=== PATIENT | male | born 1935 | race Caucasian/White ===

== ENCOUNTER 2017-09-22 13:05 | Emergency (ER) | payer OTHER ==
[~2017-09-22 13:05] MED LIST: ASPI81; LORT5TAB PO
[2017-09-22 13:30] VITALS: BP 148/70; PULSE 65; RESP 20; TEMP 97.4; O2SAT 87; O2SAT 90
[2017-09-22 13:31] VITALS: O2SAT 93
--- NOTE | 2017-09-22 13:51 | PD ---
HPI Chief Complaint: Fall Time Seen by Provider: 13:38 Travel History International Travel<30 days: No Contact w/Intl Traveler<30days: No Traveled to known affect area: No History of Present Illness HPI 81 YO M presents to the ED via EMS for evaluation of 8/10 right groin pain. Onset after attempting to roll out of bed. Pain is constant, worsened by attempted ROM. The patient has not been ambulatory since the incident. He denies CP, palpitations, SOB, abdominal pain, decreased appetite, N/V. He has an indwelling Munoz catheter. He speaks in a soft, raspy voice. He states this is his normal. He is unable to provide any other meaningful history. PFSH Past Medical History Arthritis: No Autoimmune Disease: No Blood Disorders: No Heart Rhythm Problems: No Cancer: No Cardiovascular Problems: Yes High Cholesterol: Yes (HX HIGH CHOLESTEROL; RESOLVED) Chemotherapy: No Chest Pain: No Congestive Heart Failure: No Diminished Hearing: No Endocrine: No Gastrointestinal Disorders: Yes Glaucoma: No Genitourinary: No Hepatitis: No Hiatal Hernia: No Hypertension: Yes Immune Disorder: No Kidney Stones: No Musculoskeletal: Yes Neurologic: No Psychiatric: No Reproductive: No Respiratory: No Myocardial Infarction: No Radiation Therapy: No Renal Failure: No Ulcer: Yes (HX BLEEDING ULCER REPAIRED SURGICALLY) Past Surgical History Abdominal Aneurysm Repair: Yes (2 OPERATIONS) Abdominal Surgery: Yes (BILATERAL HERNIA REPAIRS 1984; ANEURYSM REPAIR 8 YEARS AGO) AICD: No Appendectomy: No Arteriovenous Shunt: No Cardiac Surgery: Yes (AAA REPAIR) Cholecystectomy: Yes Ear Surgery: No Endocrine Surgery: No Eye Surgery: No Genitourinary Surgery: No Gynecologic Surgery: No Insulin Pump: No Joint Replacement: No Oral Surgery: No Pacemaker: No Thoracic Surgery: No Other Surgery: Yes (BILATERAL HERNIA REPAIRS 1984) Social History Alcohol Use: No Tobacco Use: Yes (1/2 PPD) Substance Use: No Allergies-Medications (Allergen,Severity, Reaction): Coded Allergies: No Known Allergies (Verified Adverse Reaction, Unknown, 09/22/17) Reported Meds & Prescriptions Reported Meds & Active Scripts Active Keflex (Cephalexin) 500 Mg Cap 500 Mg PO Q12H 7 Days Reported Xanax (Alprazolam) 0.5 Mg Tab 0.25-0.5 Mg PO Q8HR PRN Remeron (Mirtazapine) 15 Mg Tab 15 Mg PO HS Terazosin (Terazosin HCl) 2 Mg Cap 2 Mg PO HS Percocet (Oxycodone-Acetaminophen) 7.5-325 mg Tab 1 Tab PO Q6H PRN Levsin-SL (Hyoscyamine Sulfate) 0.125 Mg Subl 0.125 Mg SL Q4H PRN Protonix (Pantoprazole Sodium) 40 Mg Tab 40 Mg PO DAILY Bethanechol 10 Mg Tab 10 Mg PO Q8HR Tamsulosin (Tamsulosin HCl) 0.4 Mg Cap 0.8 Mg PO HS Buspirone (Buspirone HCl) 10 Mg Tab 10 Mg PO BID AM & HS Coreg (Carvedilol) 6.25 Mg Tab 6.25 Mg PO BID Lasix (Furosemide) 40 Mg Tab 80 Mg PO SUTUTHSA Take 2 tablets (80mg) daily on Monday,Monday, and Monday Senna S (Sennosides-Docusate Sodium) 8.6-50 Mg Tab 2 Tab PO BID Gabapentin 100 Mg Cap 200 Mg PO TID Norvasc (Amlodipine Besylate) 10 Mg Tab 10 Mg PO DAILY Aspirin Adult Low Strength (Aspirin) 81 Mg Tabdr 81 Mg PO DAILY Pepcid (Famotidine) 20 Mg Tab 20 Mg PO DAILY Celexa (Citalopram Hydrobromide) 10 Mg Tab 10 Mg PO HS Restoril (Temazepam) 15 Mg Cap 15 Mg PO HS PRN Morphine Liq (Morphine Sulfate) 20 Mg/Ml Liq 5 Mg PO Q3HR Proair Hfa (Albuterol Sulfate) 90 Mcg Hfa.aer.ad 2 Puff INH Q6HR PRN Review of Systems ROS Limitations: Poor Historian Except as stated in HPI: all other systems reviewed are Neg Physical Exam Exam Limitations: Poor Historian Narrative GENERAL: Chronically ill-appearing white male in no acute distress. SKIN: Focused skin assessment warm/dry. HEAD: Normocephalic. Atraumatic. EYES: No scleral icterus. No injection or drainage. NECK: Supple, trachea midline. No JVD or lymphadenopathy. CARDIOVASCULAR: Regular rate and rhythm without murmurs, gallops, or rubs. RESPIRATORY: Breath sounds clear and equal bilaterally. No accessory muscle use. GASTROINTESTINAL: Abdomen soft, non-tender, nondistended. Active bowel sounds. : Indwelling Munoz catheter with cloudy yellow urine in the collection bag. MUSCULOSKELETAL: No cyanosis, or edema. FOCUSED RIGHT LOWER EXTREMITY EXAM: 2+ DP pulse. Pain elicited with internal and external rotation or attempted flexion of the hip or knee. No foreshortening or internal rotation noted. BACK: Nontender without obvious deformity. No CVA tenderness. Data Data Last Documented VS Vital Signs Date Time Temp Pulse Resp B/P (MAP) Pulse Ox O2 Delivery O2 Flow Rate FiO2 09/22/17 19:21 09/22/17 18:13 68 18 96 Nasal Cannula 4.00 09/22/17 13:30 97.4 Orders Orders Hip, Uni(Ap&Lat) W Ap Pelvis (09/22/17 13:37) Hip, Uni(Ap&Lat) Wo Ap Pelvis (09/22/17 13:58) Electrocardiogram (09/22/17 14:35) Complete Blood Count With Diff (09/22/17 14:35) Comprehensive Metabolic Panel (09/22/17 14:35) Prothrombin Time / Inr (Pt) (09/22/17 14:35) Act Partial Throm Time (Ptt) (09/22/17 14:35) Urinalysis - C+S If Indicated (09/22/17 14:35) Type And Screen (09/22/17 14:35) Chest, Single Ap (09/22/17 14:35) Iv Access Insert/Monitor (09/22/17 14:35) Oximetry (09/22/17 14:35) Ecg Monitoring (09/22/17 14:35) Sodium Chloride 0.9% Flush (Ns Flush) (09/22/17 14:45) Diet Npo (09/22/17 Dinner) Ct Hip W/O Contrast (09/22/17 ) Urine Culture (09/22/17 14:45) Morphine Inj (Morphine Inj) (09/22/17 16:30) Ct Hip W/O Contrast (09/22/17 ) Ed Discharge Order (09/22/17 18:24) Labs Laboratory Tests Test 09/22/17 14:45 White Blood Count 10.1 TH/MM3 Red Blood Count 4.45 MIL/MM3 Hemoglobin 12.5 GM/DL Hematocrit 37.8 % Mean Corpuscular Volume 85.0 FL Mean Corpuscular Hemoglobin 28.0 PG Mean Corpuscular Hemoglobin Concent 33.0 % Red Cell Distribution Width 19.2 % Platelet Count 161 TH/MM3 Mean Platelet Volume 9.2 FL Neutrophils (%) (Auto) 64.9 % Lymphocytes (%) (Auto) 18.9 % Monocytes (%) (Auto) 11.9 % Eosinophils (%) (Auto) 3.4 % Basophils (%) (Auto) 0.9 % Neutrophils # (Auto) 6.5 TH/MM3 Lymphocytes # (Auto) 1.9 TH/MM3 Monocytes # (Auto) 1.2 TH/MM3 Eosinophils # (Auto) 0.3 TH/MM3 Basophils # (Auto) 0.1 TH/MM3 CBC Comment DIFF FINAL Differential Comment Prothrombin Time 10.2 SEC Prothromb Time International Ratio 1.0 RATIO Activated Partial Thromboplast Time 26.8 SEC Urine Color YELLOW Urine Turbidity HAZY Urine pH 6.0 Urine Specific [place] 1.015 Urine Protein 100 mg/dL Urine Glucose (UA) NEG mg/dL Urine Ketones NEG mg/dL Urine Occult Blood SMALL Urine Nitrite NEG Urine Bilirubin NEG Urine Urobilinogen LESS THAN 2.0 MG/DL Urine Leukocyte Esterase LARGE Urine RBC 12 /hpf Urine WBC /hpf Urine WBC Clumps MANY Urine Amorphous Sediment RARE Urine Bacteria MANY /hpf Urine Hyaline Casts 3 /lpf Urine Granular Casts 7 /lpf Microscopic Urinalysis Comment CATH-CULTURE IND Blood Urea Nitrogen 47 MG/DL Creatinine 3.97 MG/DL Random Glucose 101 MG/DL Total Protein 7.5 GM/DL Albumin 2.9 GM/DL Calcium Level 9.2 MG/DL Alkaline Phosphatase 86 U/L Aspartate Amino Transf (AST/SGOT) 17 U/L Alanine Aminotransferase (ALT/SGPT) 8 U/L Total Bilirubin 0.5 MG/DL Sodium Level 139 MEQ/L Potassium Level 4.6 MEQ/L Chloride Level 105 MEQ/L Carbon Dioxide Level 25.6 MEQ/L Anion Gap 8 MEQ/L Estimat Glomerular Filtration Rate 15 ML/MIN [facility] Medical Decision Making Medical Screen Exam Complete: Yes Emergency Medical Condition: Yes Differential Diagnosis Hip fracture versus pelvic fracture versus dislocation versus fall versus other Narrative Course 81-year-old male presents to the ED via EMS for evaluation of 10/10 right hip pain. Patient states the pain onset after he was attempting to get out of bed. 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 Patient is hypertensive on presentation. Physical exam reveals a chronically ill-appearing white male in no acute distress. 2+ DP pulse in the right leg. Attempted internal and external rotation elicits pain. Attempted flexion of his pain. Exam otherwise unremarkable. Patient's daughter arrives at bedside and states that patient is on [facility]. She reports history of renal failure, patient stopped going to dialysis in June. He is cared for at home by his daughters.The patient was ambulatory until yesterday when he had a fall on his daughters back porch. She states that the patient did not hit his head or lose consciousness. CBC & BMP Diagram 09/22/17 14:45 Total Protein 7.5, Albumin 2.9 L, Calcium Level 9.2, Alkaline Phosphatase 86, Aspartate Amino Transf (AST/SGOT) 17, Alanine Aminotransferase (ALT/SGPT) 8 L, Total Bilirubin 0.5 UA: Hazy, large leukocyte Estrace, innumerable WBCs, many wbc clumps, many bacteria. Culture indicated. Coags: INR 1.0. CXR: Mild cardiomegaly with minimal positive fluids bounds. Subtle left atypical effusion/peripheral thickening. No pneumothorax or acute displaced rib fractures. EKG rate 65, sinus rhythm. MO interval 1:30, QRS 108, QTC 445. LVH. ST elevations in V4-V6. Right hip and pelvis x-ray: Question of early avascular necrosis Left hip x-ray: Recommend CT exam Right extremity CT: Right inferior pubic ramus and acetabular fractures noted. Left lower extremities CT: No evidence for hip fracture I discussed the results of the workup with the patient's daughter. She would like to have with recommendations before leaving today. I spoke with Dr. Almanzar who does not recommend surgical intervention at this time. Case management was contacted to arrange a hospital bed and changes in his nursing schedule. The patient is discharged hospice care. Diagnosis Primary Impression: Pelvic fracture Qualified Codes: S32.501A - Unspecified fracture of right pubis, initial encounter for closed fracture Additional Impressions: Acetabular fracture Qualified Codes: S32.401A - Unspecified fracture of right acetabulum, initial encounter for closed fracture Urinary tract infection Qualified Codes: T83.511A - Infection and inflammatory reaction due to indwelling urethral catheter, initial encounter; N39.0 - Urinary tract infection , site not specified Referrals: Orestes Almanzar Jr., MD Patient Instructions: Catheter-associated Urinary Tract Infection (ED), General Instructions, Pelvic Fracture (ED) Additional Instructions: Rest, hydrate. Begin antibiotics today and administer every dose until they're gone. Patient should be nonweightbearing until cleared by orthopedist. Follow-up with Dr. Brandt as discussed. Return to the ED for worsening symptoms or any urgent or emergent medical condition. Med/Other Pt SpecificInfo: Prescription(s) given Scripts Cephalexin (Keflex) 500 Mg Cap 500 MG PO Q12H for Infection for 7 Days, #14 CAP 0 Refills Prov: Marli Shea MD 09/22/17 Disposition: 51 HOSPICE/MED FACILITY Condition: Stable Radha Davis Sep 22, 2017 13:51
--- NOTE | 2017-09-22 14:15 | RADRPT ---
EXAM DATE/TIME: 09/22/2017 13:54 [facility] COMPARISON: No previous studies available for comparison. INDICATIONS : Right hip pain, no known injury. MEDICAL HISTORY : Unobtainable. SURGICAL HISTORY : Unobtainable. ENCOUNTER: Initial ACUITY: 1 day PAIN SCORE: Non-responsive. LOCATION: Right hip FINDINGS: There is sclerosis to the right femoral head when compared to the left. This can be seen with early avascular necrosis. SI joint is normal. Lungs anatomic. Fractures are appreciated. CONCLUSION: Question of early avascular necrosis Gabriel Craig MD FACR on September 22, 2017 at 14:14 Board Certified Radiologist. This report was verified electronically.
--- NOTE | 2017-09-22 14:25 | RADRPT ---
EXAM DATE/TIME: 09/22/2017 13:54 [facility] COMPARISON: No previous studies available for comparison. INDICATIONS : Left hip pain, no known injury. MEDICAL HISTORY : Unobtainable. SURGICAL HISTORY : Unobtainable. ENCOUNTER: Initial ACUITY: 1 day PAIN SCORE: Non-responsive. LOCATION: Left hip FINDINGS: The configuration of the left hip is abnormal on all the views provided believe there is likely a sub capital fracture with some impaction. CT examination of the pelvis and left hip would be suggested. T he adjacent pelvis appears grossly intact. Contralateral right hip is notable for moderate degenerati ve change. CONCLUSION: Recommend CT examination of the pelvis and left hip Marek Esquivel MD on September 22, 2017 at 14:22 Board Certified Radiologist. This report was verified electronically.
[2017-09-22] MEDS ORDERED: SODIUM CHLORIDE 0.9% FLUSH 10 ML FLUSH IVF PRN (14:45)
[2017-09-22 15:10] LABS: AUTOMATED NEUTROPHIL # 6.5 TH/MM3 (1.8-7.7); BASOPHIL # 0.1 TH/MM3 (0-0.2); BASOPHIL % 0.9 % (0.0-2.0); EOSINOPHIL # 0.3 TH/MM3 (0-0.4); EOSINOPHIL % 3.4 % (0.0-4.0); HEMATOCRIT 37.8 % (39.0-51.0); HEMOGLOBIN 12.5 GM/DL (13.0-17.0); LYMPH % 18.9 % (9.0-44.0); LYMPHOCYTE # 1.9 TH/MM3 (1.0-4.8); MEAN PLATELET VOLUME 9.2 FL (7.0-11.0); MONO % 11.9 % (0.0-8.0); MONOCYTE # 1.2 TH/MM3 (0-0.9); NEUT % 64.9 % (16.0-70.0); PLATELET COUNT 161 TH/MM3 (150-450); RED BLOOD COUNT 4.45 MIL/MM3 (4.50-5.90); RED CELL DISTRIBUTION WIDTH 19.2 % (11.6-17.2); WHITE BLOOD COUNT 10.1 TH/MM3 (4.0-11.0)
--- NOTE | 2017-09-22 15:13 | RADRPT ---
EXAM DATE/TIME: 09/22/2017 14:56 [facility] COMPARISON: HIP LEFT (AP&LAT 2/3VWS) WO AP PELVIS, September 22, 2017, 13:54. HIP RIGHT (AP&LAT 2/3VWS) W AP PELVIS, September 22, 2017, 13:54. INDICATIONS : Patient rolled out of bed yesterday, hip pain. Right. RADIATION DOSE: 7.89 CTDIvol (mGy) MEDICAL HISTORY : Cardiovascular disease. Hypertension. SURGICAL HISTORY : Abdominal aortic aneurysm repair. Cholecystectomy. Bilateral hernia repairs. ENCOUNTER: Initial ACUITY: 2 days PAIN SCALE: 10/10 LOCATION: Right pelvis TECHNIQUE: Volumetric scanning of the hip was performed. Using automated exposure control and adjustment of the mA and/or kV according to patient size, radiation dose was kept as low as reasonably achievable to o btain optimal diagnostic quality images. DICOM format image data is available electronically for rev iew and comparison. FINDINGS: The bone density is diminished. There is a nondisplaced fracture through the right inferior pubic cami us identified, as well as a slightly displaced fracture of the acetabulum noted. This involves the ro of and medial acetabulum. This is best appreciated on axial image 33 of series 3. The femoral head is intact. There is moderate narrowing of the right hip and mild sclerosis of the femoral head without evidence of fracture. CONCLUSION: Right inferior pubic ramus and acetabular fractures are noted. Mateo Mendoza MD on September 22, 2017 at 15:09 Board Certified Radiologist. This report was verified electronically.
[2017-09-22 15:23] LABS: AMORPHOUS SEDIMENT, URINE RARE; BACTERIA, URINE MANY /hpf; BILIRUBIN, URINE NEG (NEG); BLOOD, URINE SMALL (NEG); GLUCOSE,URINE NEG (NEG); HYALINE CAST, URINE 3 /lpf (RARE); KETONE, URINE NEG (NEG); NITRITE,URINE NEG (NEG); URINE COLOR YELLOW (YELLW/STRAW); URINE LEUKOCYTE ESTERASE LARGE (NEG); WHITE BLOOD CELL CLUMPS MANY
[2017-09-22 15:26] LABS: ALBUMIN 2.9 GM/DL (3.4-5.0); ALT (GPT) 8 U/L (12-78); AST (GOT) 17 U/L (15-37); BICARBONATE 25.6 MEQ/L (21.0-32.0); BLOOD UREA NITROGEN 47 MG/DL (7-18); CALCIUM 9.2 MG/DL (8.5-10.1); CHLORIDE 105 MEQ/L (98-107); CREATININE 3.97 MG/DL (0.60-1.30); GLOMERULAR FILTRATION RATE 15 ML/MIN (>89); GLUCOSE,RANDOM 101 MG/DL (74-106); PROTHROMBIN TIME - PATIENT 10.2 SEC (9.8-11.6); SODIUM (NA) 139 MEQ/L (136-145)
[2017-09-22 15:29] LABS: ALKALINE PHOSPHATASE 86 U/L (45-117); TOTAL BILIRUBIN ADULT 0.5 MG/DL (0.2-1.0); TOTAL PROTEIN 7.5 GM/DL (6.4-8.2)
--- NOTE | 2017-09-22 15:37 | RADRPT ---
EXAM DATE/TIME: 09/22/2017 14:50 [facility] COMPARISON: No previous studies available for comparison. INDICATIONS : Trauma to chest post fall today MEDICAL HISTORY : Cardiovascular disease. SURGICAL HISTORY : Aortic stent ENCOUNTER: Initial ACUITY: 1 day PAIN SCORE: 0/10 LOCATION: Bilateral chest FINDINGS: Mild right IJ dialysis catheter with tip in the proximal right atrium. Distal thoracic aortic endogra ft which appears grossly intact. Mild diffuse interstitial prominence. Mild left apical effusion/pleu ral thickening. Cardiac silhouette is minimally enlarged. Left bony thorax deformity likely from prio r thoracotomy. CONCLUSION: 1. Mild cardiomegaly with minimal positive fluid balance. 2. Subtle left apical effusion/pleural thickening. 3. No pneumothorax or acute displaced rib fractures. Reed Rawls MD on September 22, 2017 at 15:28 Board Certified Radiologist. This report was verified electronically.
[2017-09-22 16:09] VITALS: BP 201/87; PULSE 85; RESP 18; O2SAT 95
[2017-09-22] MEDS ORDERED: MORPHINE SULFATE 2 MG/ML INJ IV PUSH ONE (16:30)
[2017-09-22] MEDS ORDERED: BETH10TA2 PO (17:06)
[2017-09-22] MEDS ORDERED: AMLO10 PO (17:06)
[2017-09-22] MEDS ORDERED: TERA2CAP3 PO (17:06)
[2017-09-22] MEDS ORDERED: CELE10TA PO (17:06)
[2017-09-22] MEDS ORDERED: GABA100C4 PO (17:06)
[2017-09-22] MEDS ORDERED: PERC7.5T13 PO (17:06)
[2017-09-22] MEDS ORDERED: SENN8.6T8 PO (17:06)
[2017-09-22] MEDS ORDERED: MORP20SO2 PO (17:06)
[2017-09-22] MEDS ORDERED: ASPI81TA16 PO (17:06)
[2017-09-22] MEDS ORDERED: LEVS0.124 SL (17:06)
[2017-09-22] MEDS ORDERED: REST15CA PO (17:06)
[2017-09-22] MEDS ORDERED: CARV6.25 PO (17:06)
[2017-09-22] MEDS ORDERED: ALPR.5 PO (17:06)
[2017-09-22] MEDS ORDERED: ALBUAER3 INH (17:06)
[2017-09-22] MEDS ORDERED: BUSP10TA PO (17:06)
[2017-09-22] MEDS ORDERED: FAMO1TAB37 PO (17:06)
[2017-09-22] MEDS ORDERED: PROT40TA PO (17:06)
[2017-09-22] MEDS ORDERED: TAMS0.4C4 PO (17:06)
[2017-09-22] MEDS ORDERED: REME15TA PO (17:06)
[2017-09-22] MEDS ORDERED: FURO1TAB60 PO (17:06)
--- NOTE | 2017-09-22 17:27 | RADRPT ---
EXAM DATE/TIME: 09/22/2017 17:05 [facility] COMPARISON: CT HIP RIGHT W/O CONTRAST, September 22, 2017, 14:56. INDICATIONS : Left hip pain from fall. RADIATION DOSE: 15.15 CTDIvol (mGy) MEDICAL HISTORY : Cardiovascular disease. Hypertension. SURGICAL HISTORY : Abdominal aortic aneurysm repair. Cholecystectomy. Bilateral hernia repair. ENCOUNTER: Initial ACUITY: 1 day PAIN SCALE: 7/10 LOCATION: Left hip TECHNIQUE: Volumetric scanning of the hip was performed. Using automated exposure control and adjustment of the mA and/or kV according to patient size, radiation dose was kept as low as reasonably achievable to o btain optimal diagnostic quality images. DICOM format image data is available electronically for rev iew and comparison. FINDINGS: Endovascular stent graft repair of abdominal aortic aneurysm and common iliac artery aneurysmal dilat ation. There is reidentified and acute fracture the right inferior pubic ramus, not significantly dis placed. There is a fracture of the right acetabulum again noted is slight medial displacement. The enrique ne density is diminished. The visualized portions of the left proximal femur and acetabulum are intac t. A few scattered bone islands are noted. There is moderate joint space narrowing of the left hip. CONCLUSION: There is no evidence for left hip fracture, however a right inferior pubic ramus and acetabular fract ure again noted. Mateo Mendoza MD on September 22, 2017 at 17:25 Board Certified Radiologist. This report was verified electronically.
--- NOTE | 2017-09-22 17:37 | PD ---
Physical Exam Date Seen by Provider: Sep 22, 2017 Narrative This patient is here for evaluation of hip injury sustained in a fall. This patient is a hospice patient. He has a history of renal failure but is no longer being dialyzed. He is ambulatory at home however. Data Data Last Documented VS Vital Signs Date Time Temp Pulse Resp B/P (MAP) Pulse Ox O2 Delivery O2 Flow Rate FiO2 09/22/17 16:09 85 18 201/87 (125) 95 Nasal Cannula 3.00 09/22/17 13:30 97.4 Orders Orders Hip, Uni(Ap&Lat) W Ap Pelvis (09/22/17 13:37) Hip, Uni(Ap&Lat) Wo Ap Pelvis (09/22/17 13:58) Electrocardiogram (09/22/17 14:35) Complete Blood Count With Diff (09/22/17 14:35) Comprehensive Metabolic Panel (09/22/17 14:35) Prothrombin Time / Inr (Pt) (09/22/17 14:35) Act Partial Throm Time (Ptt) (09/22/17 14:35) Urinalysis - C+S If Indicated (09/22/17 14:35) Type And Screen (09/22/17 14:35) Chest, Single Ap (09/22/17 14:35) Iv Access Insert/Monitor (09/22/17 14:35) Oximetry (09/22/17 14:35) Ecg Monitoring (09/22/17 14:35) Sodium Chloride 0.9% Flush (Ns Flush) (09/22/17 14:45) Diet Npo (09/22/17 Dinner) Ct Hip W/O Contrast (09/22/17 ) Urine Culture (09/22/17 14:45) Morphine Inj (Morphine Inj) (09/22/17 16:30) Ct Hip W/O Contrast (09/22/17 ) Labs Laboratory Tests Test 09/22/17 14:45 White Blood Count 10.1 TH/MM3 Red Blood Count 4.45 MIL/MM3 Hemoglobin 12.5 GM/DL Hematocrit 37.8 % Mean Corpuscular Volume 85.0 FL Mean Corpuscular Hemoglobin 28.0 PG Mean Corpuscular Hemoglobin Concent 33.0 % Red Cell Distribution Width 19.2 % Platelet Count 161 TH/MM3 Mean Platelet Volume 9.2 FL Neutrophils (%) (Auto) 64.9 % Lymphocytes (%) (Auto) 18.9 % Monocytes (%) (Auto) 11.9 % Eosinophils (%) (Auto) 3.4 % Basophils (%) (Auto) 0.9 % Neutrophils # (Auto) 6.5 TH/MM3 Lymphocytes # (Auto) 1.9 TH/MM3 Monocytes # (Auto) 1.2 TH/MM3 Eosinophils # (Auto) 0.3 TH/MM3 Basophils # (Auto) 0.1 TH/MM3 CBC Comment DIFF FINAL Differential Comment Prothrombin Time 10.2 SEC Prothromb Time International Ratio 1.0 RATIO Activated Partial Thromboplast Time 26.8 SEC Urine Color YELLOW Urine Turbidity HAZY Urine pH 6.0 Urine Specific [place] 1.015 Urine Protein 100 mg/dL Urine Glucose (UA) NEG mg/dL Urine Ketones NEG mg/dL Urine Occult Blood SMALL Urine Nitrite NEG Urine Bilirubin NEG Urine Urobilinogen LESS THAN 2.0 MG/DL Urine Leukocyte Esterase LARGE Urine RBC 12 /hpf Urine WBC /hpf Urine WBC Clumps MANY Urine Amorphous Sediment RARE Urine Bacteria MANY /hpf Urine Hyaline Casts 3 /lpf Urine Granular Casts 7 /lpf Microscopic Urinalysis Comment CATH-CULTURE IND Blood Urea Nitrogen 47 MG/DL Creatinine 3.97 MG/DL Random Glucose 101 MG/DL Total Protein 7.5 GM/DL Albumin 2.9 GM/DL Calcium Level 9.2 MG/DL Alkaline Phosphatase 86 U/L Aspartate Amino Transf (AST/SGOT) 17 U/L Alanine Aminotransferase (ALT/SGPT) 8 U/L Total Bilirubin 0.5 MG/DL Sodium Level 139 MEQ/L Potassium Level 4.6 MEQ/L Chloride Level 105 MEQ/L Carbon Dioxide Level 25.6 MEQ/L Anion Gap 8 MEQ/L Estimat Glomerular Filtration Rate 15 ML/MIN MDM Supervised Visit with DANDRE: Yes Narrative Course I, Dr. Shea, have reviewed the advance practice practitioner's documentation and am in agreement, met with the patient face to face, made the diagnosis, and the medical decision making was done by me. *My assessment and Findings: The patient has been medicated for pain and states that he is pretty comfortable at this time. Please see Radha Davis PA-C's note for results of laboratory and radiographic evaluation, ED course, final diagnosis and disposition Marli Shea MD Sep 22, 2017 17:37
[2017-09-22] MEDS ORDERED: CEPH-460 PO (17:50)
[2017-09-22 18:13] VITALS: BP 163/71; PULSE 68; RESP 18; O2SAT 96
--- NOTE | 2017-09-23 09:29 | EKG ---
Date Performed: 09/22/2017 Time Performed: 16:57:33 PTAGE: 81 years EKG: Sinus rhythm VOLTAGE CRITERIA FOR LVH LATERAL MYOCARDIAL INFARCTION ACUTE MT PREVIOUS TRACING : 09/20/2006 10.59 DOCTOR: Yevgeniy Andres Interpretating Date/Time 09/23/2017 09:28:20
== END 2017-09-22 22:23 | disposition hospice, inpatient (51) ==
LOC: NEPE 13:05
DX: S32.501A Unspecified fracture of right pubis, initial encounter for closed fracture (principal); S32.401A Unspecified fracture of right acetabulum, initial encounter for closed fracture; T83.511A Infection and inflammatory reaction due to indwelling urethral catheter, initial encounter; N39.0 Urinary tract infection, site not specified; B96.1 Klebsiella pneumoniae [K. pneumoniae] as the cause of diseases classified elsewhere; B96.5 Pseudomonas (aeruginosa) (mallei) (pseudomallei) as the cause of diseases classified elsewhere; I10 Essential (primary) hypertension; F17.210 Nicotine dependence, cigarettes, uncomplicated; W06.XXXA Fall from bed, initial encounter; Z79.82 Long term (current) use of aspirin; Z79.899 Other long term (current) drug therapy
CPT/HCPCS: 71045; 73502; 73700; 80053; 81001; 85025; 85610; 85730; 86850; 86900; 86901; 87077; 87086; 87186; 93005; 96374; 99285; J2270